=== PATIENT | female | born 1980 | race African-American/Black ===

== ENCOUNTER 2016-11-28 19:43 | Emergency (ER) | payer SELFPAY ==
[~2016-11-28] VITALS: Ht 167.6 cm; Wt 108.0 kg
[2016-11-28 19:44] VITALS: BP 160/103; PULSE 96; RESP 16; TEMP 98.2; O2SAT 100
--- NOTE | 2016-11-28 21:01 | PD ---
HPI Chief Complaint: Headache Time Seen by Provider: 20:58 Travel History International Travel<30 days: No Contact w/Intl Traveler<30days: No Traveled to known affect area: No History of Present Illness HPI 36-year-old black female presents to emergency department for evaluation of a headache. She states that her headache started earlier today. She just moved here 2 weeks ago from [place]. She last took 600 mg ibuprofen sometime around 6 PM for her headache. She has had minimal improvement. LOCATION: Frontal QUALITY: Pressure SEVERITY: Moderate TIMING: Current DURATION: Since earlier today CONTACTS: Not up couple MODIFYING FACTORS: Movement and activity ASSOCIATED TIME AND SYMPTOMS:Some weakness and dizziness. Denies any fever or chills. No runny nose, cough or congestion. No nausea vomiting. No photophobia or phonophobia. States history of prior headaches which she reports from sinus. [facility] Past Medical History Narrative Medical sINUS HEADACHES. Denies hypertension Diminished Hearing: No Tetanus Vaccination: Unknown Influenza Vaccination: No ?: Not LMP: 11/08/16 Past Surgical History Surgical History: No Previous Surgery Social History Alcohol Use: Yes (RARE) Tobacco Use: No Substance Use: No Allergies-Medications (Allergen,Severity, Reaction): Coded Allergies: Tylenol (Verified Adverse Reaction, Intermediate, Rash, 11/28/16) Reported Meds & Prescriptions Reported Meds & Active Scripts Active No Active Prescriptions or Reported Medications Review of Systems Except as stated in HPI: all other systems reviewed are Neg General / Constitutional: No: Fever, Chills Eyes: No: Diploplia, Blurred Vision, Photophobia HENT: Positive: Headaches, No: Neck Stiffness Cardiovascular: No: Chest Pain or Discomfort, Palpitations Respiratory: No: Cough, Shortness of Breath Gastrointestinal: No: Nausea, Vomiting Genitourinary: No: Dysuria, Hematuria Musculoskeletal: No: Myalgias, Arthralgias Skin: No Rash, No Itching Neurologic: Positive: Weakness, Dizziness, Headache, No: Paresthesia Physical Exam Narrative GENERAL: Well-developed, well-nourished in no apparent distress. Nontoxic appearing. HEAD: Normocephalic, atraumatic. Patient does complain of some mild discomfort on all patient of the forehead and cheeks. EYES: Pupils equal round and reactive. Extraocular motions intact. No scleral icterus. No injection or drainage. ENT: Nose clear. Throat without erythema, tonsillar hypertrophy or exudate. Uvula midline. Airway patent. NECK: Trachea midline. Supple, nontender, moves head freely. No central bony tenderness or spasm. CARDIOVASCULAR: Regular rate and rhythm without murmurs, gallops, or rubs. RESPIRATORY: Clear to auscultation. Breath sounds equal bilaterally. No wheezes , rales, or rhonchi. GASTROINTESTINAL: Abdomen soft, non-tender, nondistended. No hepato-splenomegaly , or palpable masses. No guarding. EXTREMITIES: No clubbing, cyanosis, or edema. No joint tenderness. BACK: Nontender without deformity. No flank tenderness. NEUROLOGICAL: Awake, alert and oriented x 3 .Cranial nerves grossly intact. Motor and sensory grossly within normal limits. Normal speech. Normal gait. Normal finger to nose. No acute sensorimotor deficit identified. Data Data Last Documented VS Vital Signs Date Time Temp Pulse Resp B/P Pulse Ox O2 Delivery O2 Flow Rate FiO2 11/28/16 21:06 89 17 136/92 96 Room Air 11/28/16 19:44 98.2 Orders Diphenhydramine Inj (Benadryl Inj) (11/28/16 21:15) Prochlorperazine Inj (Compazine Inj) (11/28/16 21:15) Iv Access Insert/Monitor (11/28/16 21:08) [facility] Medical Decision Making Medical Screen Exam Complete: Yes Emergency Medical Condition: Yes Medical Record Reviewed: Yes Differential Diagnosis MDM: High Differential diagnoses: Subarachnoid hemorrhage, intracranial bleed, aneurysm, pseudotumor, migraine, cluster headache, atypical migraine, temporal arteritis, connective tissue disorder, hypertension, temporal arteritis, sinusitis, sinus headache,malingering Narrative Course IV access is obtained. Patient given Benadryl 50 mg IV and Compazine 10 mg IV. The patient is reexamined. She states that she has had complete resolution of her headache. This is cephalgia Diagnosis Primary Impression: Cephalgia Patient Instructions: General Instructions Additional Instructions: Rest. Sleep. No driving. Follow-up with a medical doctor in the next 3-7 days. Return to the ER if any problems. Med/Other Pt SpecificInfo: No Meds Exist/No RX given Scripts No Active Prescriptions or Reported Meds Disposition: DISCHARGE HOME Condition: Stable Kayden Bey Nov 28, 2016 21:01
[2016-11-28 21:06] VITALS: BP 136/92; PULSE 89; RESP 17; O2SAT 96
[2016-11-28] MEDS ORDERED: PROCHLORPERAZINE INJ 10 MG/2 ML VIAL IVS ONE (21:15)
[2016-11-28] MEDS ORDERED: diphenhydrAMINE HCL 50 MG/ML VIAL IV PUSH ONE (21:15)
[2016-11-28 22:37] VITALS: BP 139/90
== END 2016-11-28 22:41 | disposition home or self-care (01) ==
LOC: NEPA 19:43
DX: R51 Headache (principal); R53.1 Weakness; R42 Dizziness and giddiness
CPT/HCPCS: 96374; 96375; 99283; J0780; J1200

== ENCOUNTER 2017-09-26 12:21 | Emergency (ER) | payer SELFPAY ==
[~2017-09-26] VITALS: Ht 167.6 cm; Wt 105.0 kg
[2017-09-26 12:26] VITALS: BP 171/101; PULSE 79; RESP 14; TEMP 98.2; O2SAT 99
[2017-09-26] MEDS ORDERED: SODIUM CHLOR 0.9% 1000 ML INJ 1,000 ML IV ONE (12:39)
[2017-09-26] MEDS ORDERED: ACETAMINOPHEN 325 MG TAB PO ONE (12:45)
[2017-09-26] MEDS ORDERED: SODIUM CHLORIDE 0.9% FLUSH 10 ML FLUSH IVF PRN (12:45)
[2017-09-26] MEDS ORDERED: PROCHLORPERAZINE INJ 10 MG/2 ML VIAL IVP ONE (12:45)
[2017-09-26] MEDS ORDERED: diphenhydrAMINE HCL 50 MG/ML VIAL IVP ONE (12:45)
[2017-09-26 12:46] VITALS: BP 142/87; PULSE 77; RESP 18; O2SAT 99
[2017-09-26] MEDS ORDERED: PROM25TA10 PO (13:42)
--- NOTE | 2017-09-26 13:42 | PD ---
HPI Chief Complaint: Headache Time Seen by Provider: 12:39 Travel History International Travel<30 days: No Contact w/Intl Traveler<30days: No Traveled to known affect area: No History of Present Illness HPI The patient's 36 years old. She complains of left sided cephalgia. 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 The onset was gradual. She's had no vomiting photophobia or neck stiffness. She's had no fever. She denies history of headaches. Severity is moderate and constant now. No other complaint is offered. There is no pain it's worse with bending over or with sneezing. No visual change. PFSH Past Medical History Heart Rhythm Problems: Yes (frequent pvc's) Diminished Hearing: No ?: Not LMP: July Social History Alcohol Use: Yes (RARE) Tobacco Use: No Substance Use: No Allergies-Medications (Allergen,Severity, Reaction): Coded Allergies: acetaminophen (Unverified Adverse Reaction, Intermediate, Rash, 09/26/17) Reported Meds & Prescriptions Reported Meds & Active Scripts Active Phenergan (Promethazine HCl) 25 Mg Tablet 25 Mg PO Q6H PRN Review of Systems Except as stated in HPI: all other systems reviewed are Neg General / Constitutional: No: Fever Physical Exam Narrative GENERAL: 36-year-old female pleasant well-nourished well-developed SKIN: Focused skin assessment warm/dry. HEAD: Atraumatic. Normocephalic. EYES: Pupils equal and round. No scleral icterus. No injection or drainage. ENT: No nasal bleeding or discharge. Mucous membranes pink and moist. NECK: Trachea midline. No JVD. Normal range of motion of the neck. CARDIOVASCULAR: Regular rate and rhythm. No murmur appreciated. RESPIRATORY: No accessory muscle use. Clear to auscultation. Breath sounds equal bilaterally. GASTROINTESTINAL: Abdomen soft, non-tender, nondistended. Hepatic and splenic margins not palpable. MUSCULOSKELETAL: No obvious deformities. No clubbing. No cyanosis. No edema. NEUROLOGICAL: Awake and alert. No obvious cranial nerve deficits. Motor grossly within normal limits. Normal speech. PSYCHIATRIC: Appropriate mood and affect; insight and judgment normal. Data Data Last Documented VS Vital Signs Date Time Temp Pulse Resp B/P (MAP) Pulse Ox O2 Delivery O2 Flow Rate FiO2 09/26/17 12:46 77 18 142/87 (105) 99 Room Air 09/26/17 12:26 98.2 vital signs reviewed Orders Orders Ecg Monitoring (09/26/17 12:39) Iv Access Insert/Monitor (09/26/17 12:39) Oximetry (09/26/17 12:39) Sodium Chloride 0.9% Flush (Ns Flush) (09/26/17 12:45) Acetaminophen (Tylenol) (09/26/17 12:45) Prochlorperazine Inj (Compazine Inj) (09/26/17 12:45) Diphenhydramine Inj (Benadryl Inj) (09/26/17 12:45) Sodium Chlor 0.9% 1000 Ml Inj (Ns 1000 M (09/26/17 12:39) Ed Discharge Order (09/26/17 14:01) MDM Medical Decision Making Medical Screen Exam Complete: Yes Emergency Medical Condition: Yes Medical Record Reviewed: Yes Differential Diagnosis Migraine, tension headache, intracranial hemorrhage, aneurysm, cerebral venous thrombosis, tension headache Narrative Course Patient received abortive therapy with excellent effect. Phenergan prescription. Follow-up with primary. Diagnosis Primary Impression: Cephalgia Qualified Codes: R51 - Headache Med/Other Pt SpecificInfo: Prescription(s) given Scripts Promethazine (Phenergan) 25 Mg Tablet 25 MG PO Q6H Y for NAUSEA OR VOMITING, #15 TAB 0 Refills Prov: Tay Carranza MD 09/26/17 Disposition: 01 DISCHARGE HOME Condition: Stable Tay Carranza MD Sep 26, 2017 13:42
[2017-09-26 14:24] VITALS: BP 137/84
== END 2017-09-26 14:26 | disposition home or self-care (01) ==
LOC: NEPC 12:21
DX: R51 Headache (principal); Z79.899 Other long term (current) drug therapy; Z88.6 Allergy status to analgesic agent
CPT/HCPCS: 96361; 96374; 96375; 99284; J0780; J1200; J7030

== ENCOUNTER 2017-11-02 18:02 | Emergency (ER) | payer OTHER ==
[~2017-11-02 18:02] MED LIST: PROM25TA10 PO
[2017-11-02 18:03] VITALS: BP 158/96; PULSE 86; RESP 16; TEMP 97.8; O2SAT 100
[2017-11-02] MEDS ORDERED: SODIUM CHLORIDE 0.9% FLUSH 10 ML FLUSH IVF PRN (18:15)
--- NOTE | 2017-11-02 18:43 | RADRPT ---
EXAM DATE/TIME: 11/02/2017 18:20 [facility] COMPARISON: No previous studies available for comparison. INDICATIONS : Chest pain and dizziness. MEDICAL HISTORY : None. SURGICAL HISTORY : None. ENCOUNTER: Initial ACUITY: 1 day PAIN SCORE: 10/10 LOCATION: Bilateral chest FINDINGS: PA and lateral views of the chest demonstrate the lungs to be symmetrically aerated without evidence of mass, infiltrate or effusion. The cardiomediastinal contours are unremarkable. Osseous structure s are intact. CONCLUSION: No acute disease. Nguyễn Zelaya MD on November 02, 2017 at 18:41 Board Certified Radiologist. This report was verified electronically.
[2017-11-02 18:51] LABS: AUTOMATED NEUTROPHIL # 10.3 TH/MM3 (1.8-7.7); BASOPHIL # 0.1 TH/MM3 (0-0.2); BASOPHIL % 0.7 % (0.0-2.0); EOSINOPHIL # 0.2 TH/MM3 (0-0.4); EOSINOPHIL % 1.1 % (0.0-4.0); HEMATOCRIT 34.4 % (35.0-46.0); HEMOGLOBIN 11.5 GM/DL (11.6-15.3); LYMPH % 22.6 % (9.0-44.0); LYMPHOCYTE # 3.4 TH/MM3 (1.0-4.8); MEAN CELL VOLUME 85.9 FL (80.0-100.0); MEAN CORPUSCULAR HEMOGLOBIN 28.7 PG (27.0-34.0); MEAN CORPUSCULAR HGB CONC 33.4 % (32.0-36.0); MEAN PLATELET VOLUME 8.2 FL (7.0-11.0); MONO % 6.8 % (0.0-8.0); NEUT % 68.8 % (16.0-70.0); PLATELET COUNT 322 TH/MM3 (150-450); RED CELL DISTRIBUTION WIDTH 13.9 % (11.6-17.2)
[2017-11-02 18:58] LABS: PROTHROMBIN TIME - PATIENT 10.5 SEC (9.8-11.6)
[2017-11-02 19:07] LABS: ALBUMIN 3.7 GM/DL (3.4-5.0); AST (GOT) 15 U/L (15-37); BICARBONATE 27.8 MEQ/L (21.0-32.0); BLOOD UREA NITROGEN 14 MG/DL (7-18); CALCIUM 8.9 MG/DL (8.5-10.1); CHLORIDE 104 MEQ/L (98-107); CREATININE 0.76 MG/DL (0.50-1.00); GLOMERULAR FILTRATION RATE 105 ML/MIN (>89); GLUCOSE,RANDOM 98 MG/DL (74-106); SODIUM (NA) 138 MEQ/L (136-145)
[2017-11-02 19:08] LABS: ALT (GPT) 22 U/L (10-53)
[2017-11-02 19:12] LABS: ALKALINE PHOSPHATASE 100 U/L (45-117); TOTAL BILIRUBIN ADULT 0.5 MG/DL (0.2-1.0); TROPONIN I LESS THAN 0.02 NG/ML (0.02-0.05)
[2017-11-02] MEDS ORDERED: cloNIDine HCL 0.1 MG TAB PO ONE (19:30)
[2017-11-02] MEDS ORDERED: CARV3.12 PO (19:31)
[2017-11-02 19:41] VITALS: BP 117/80; PULSE 80; RESP 16; O2SAT 96
[2017-11-02] MEDS ORDERED: KETOROLAC TROMETHAMINE 30 MG/ML (IVP) VIAL IV PUSH ONE (22:00)
[2017-11-03 00:26] LABS: BILIRUBIN, URINE NEG (NEG); BLOOD, URINE SMALL (NEG); GLUCOSE,URINE NEG (NEG); KETONE, URINE NEG (NEG); MUCUS URINE FEW /lpf (OCC); NITRITE,URINE NEG (NEG); PH, URINE 5.5 (5.0-8.5); SQUAMOUS EPITHELIAL CELL URINE <1 /hpf (0-5); URINE COLOR LIGHT-YELLOW (YELLW/STRAW); URINE LEUKOCYTE ESTERASE NEG (NEG)
[2017-11-03 00:51] VITALS: BP 137/89
[2017-11-03] MEDS ORDERED: LISI-519 PO (01:01)
--- NOTE | 2017-11-03 01:01 | PD ---
HPI . Hypertension/chest pain/headache Chief Complaint: Chest Pain Time Seen by Provider: 19:23 Travel History International Travel<30 days: No Contact w/Intl Traveler<30days: No Traveled to known affect area: No History of Present Illness HPI 36-year-old female presents with complaints of high blood pressure, with associated headache, and chest pressure which patient states that occurs intermittently associated when her blood pressure is elevated. Patient was lost to follow-up, as recently procured insurance, and wishes to have referral for outpatient medical clinic/physician. Patient denies any change in exercise tolerance, denies any leg pain or swelling or confining travel or sedentary period. Denies double vision, focal weakness or tingling, or incontinence. PFSH Past Medical History Narrative Medical Past medical history reviewed Heart Rhythm Problems: Yes (frequent pvc's) Diminished Hearing: No ?: Not LMP: 11/02/17 Social History Alcohol Use: Yes (RARE) Tobacco Use: No Substance Use: No Allergies-Medications (Allergen,Severity, Reaction): Coded Allergies: acetaminophen (Verified Adverse Reaction, Intermediate, Rash, 11/02/17) Reported Meds & Prescriptions Reported Meds & Active Scripts Active Phenergan (Promethazine HCl) 25 Mg Tablet 25 Mg PO Q6H PRN Reported Carvedilol 3.125 Mg Tab Unknown Dose PO BID Narrative Medication Allergies and medications reviewed Review of Systems General / Constitutional: No: Fever Eyes: No: Visual changes HENT: Positive: Headaches Cardiovascular: Positive: Chest Pain or Discomfort Respiratory: No: Shortness of Breath Gastrointestinal: No: Abdominal Pain Genitourinary: No: Dysuria Musculoskeletal: No: Pain Skin: No Rash Neurologic: No: Weakness Psychiatric: No: Depression Endocrine: No: Polydipsia Hematologic/Lymphatic: No: Easy Bruising Physical Exam Narrative GENERAL: Awake and alert oriented 3 no acute distress. Patient appears uncomfortable. Patient was hypertensive in triage SKIN: Warm and dry. Color normal no diaphoresis cyanosis or pallor HEAD: Atraumatic. Normocephalic. EYES: Pupils equal and round. No scleral icterus. No injection or drainage. Funduscopic exam difficult secondary to poor patient purchase patient ENT: No nasal bleeding or discharge. Mucous membranes pink and moist. NECK: Trachea midline. No JVD. Supple for range of motion CARDIOVASCULAR: Regular rate and rhythm. S1-S2 no murmurs rubs or gallops RESPIRATORY: No accessory muscle use. Clear to auscultation. Breath sounds equal bilaterally. GASTROINTESTINAL: Abdomen soft, non-tender, nondistended. Hepatic and splenic margins not palpable. MUSCULOSKELETAL: Extremities without clubbing, cyanosis, or edema. No obvious deformities. NEUROLOGICAL: Awake and alert. No obvious cranial nerve deficits. Motor grossly within normal limits. Five out of 5 muscle strength in the arms and legs. Normal speech. PSYCHIATRIC: Appropriate mood and affect; insight and judgment normal. Data Data Last Documented VS Vital Signs Date Time Temp Pulse Resp B/P (MAP) Pulse Ox O2 Delivery O2 Flow Rate FiO2 11/02/17 19:55 16 Room Air 11/02/17 19:41 80 117/80 (92) 96 11/02/17 18:03 97.8 Orders Orders Electrocardiogram (11/02/17 18:11) Ckmb (Isoenzyme) Profile (11/02/17 18:11) Complete Blood Count With Diff (11/02/17 18:11) Comprehensive Metabolic Panel (11/02/17 18:11) Magnesium (Mg) (11/02/17 18:11) Prothrombin Time / Inr (Pt) (11/02/17 18:11) Act Partial Throm Time (Ptt) (11/02/17 18:11) Troponin I (11/02/17 18:11) Sodium Chloride 0.9% Flush (Ns Flush) (11/02/17 18:15) Chest, Pa & Lat (11/02/17 18:11) CKMB (11/02/17 18:16) CKMB% (11/02/17 18:16) Influenzae A/B Antigen (11/02/17 19:26) Clonidine (Catapres) (11/02/17 19:30) Urinalysis - C+S If Indicated (11/02/17 21:51) Ed Urine Pregnancytest Poc (11/02/17 21:51) Ketorolac Inj (Toradol Inj) (11/02/17 22:00) Electrocardiogram (11/02/17 ) D-Dimer (11/02/17 22:06) Labs Laboratory Tests Test 11/02/17 18:16 11/02/17 22:59 11/02/17 23:30 White Blood Count 15.0 TH/MM3 Red Blood Count 4.00 MIL/MM3 Hemoglobin 11.5 GM/DL Hematocrit 34.4 % Mean Corpuscular Volume 85.9 FL Mean Corpuscular Hemoglobin 28.7 PG Mean Corpuscular Hemoglobin Concent 33.4 % Red Cell Distribution Width 13.9 % Platelet Count 322 TH/MM3 Mean Platelet Volume 8.2 FL Neutrophils (%) (Auto) 68.8 % Lymphocytes (%) (Auto) 22.6 % Monocytes (%) (Auto) 6.8 % Eosinophils (%) (Auto) 1.1 % Basophils (%) (Auto) 0.7 % Neutrophils # (Auto) 10.3 TH/MM3 Lymphocytes # (Auto) 3.4 TH/MM3 Monocytes # (Auto) 1.0 TH/MM3 Eosinophils # (Auto) 0.2 TH/MM3 Basophils # (Auto) 0.1 TH/MM3 CBC Comment DIFF FINAL Differential Comment Prothrombin Time 10.5 SEC Prothromb Time International Ratio 1.0 RATIO Activated Partial Thromboplast Time 26.9 SEC Blood Urea Nitrogen 14 MG/DL Creatinine 0.76 MG/DL Random Glucose 98 MG/DL Total Protein 8.0 GM/DL Albumin 3.7 GM/DL Calcium Level 8.9 MG/DL Magnesium Level 2.0 MG/DL Alkaline Phosphatase 100 U/L Aspartate Amino Transf (AST/SGOT) 15 U/L Alanine Aminotransferase (ALT/SGPT) 22 U/L Total Bilirubin 0.5 MG/DL Sodium Level 138 MEQ/L Potassium Level 3.9 MEQ/L Chloride Level 104 MEQ/L Carbon Dioxide Level 27.8 MEQ/L Anion Gap 6 MEQ/L Estimat Glomerular Filtration Rate 105 ML/MIN Total Creatine Kinase 244 U/L Creatine Kinase MB 1.9 NG/ML Creatine Kinase MB % 0.8 % Troponin I LESS THAN 0.02 NG/ML D-Dimer Quantitative (PE/DVT) 0.28 MG/L FEU Urine Color LIGHT-YELLOW Urine Turbidity CLEAR Urine pH 5.5 Urine Specific [place] 1.008 Urine Protein NEG mg/dL Urine Glucose (UA) NEG mg/dL Urine Ketones NEG mg/dL Urine Occult Blood SMALL Urine Nitrite NEG Urine Bilirubin NEG Urine Urobilinogen LESS THAN 2.0 MG/DL Urine Leukocyte Esterase NEG Urine RBC 1 /hpf Urine WBC 1 /hpf Urine Squamous Epithelial Cells <1 /hpf Urine Mucus FEW /lpf Microscopic Urinalysis Comment CULT NOT INDICATED MDM Medical Decision Making Medical Screen Exam Complete: Yes Emergency Medical Condition: Yes Medical Record Reviewed: Yes Differential Diagnosis Hypertensive urgency, chest pain, headache Narrative Course No sinus rhythm 80 bpm, ST elevation of 1 mm in V1 and nonspecific remainder of cardiogram normal. Repeat cardiogram at 2 hours, no change Laboratory examinations including cardiac enzymes and renal function normal Patient's blood pressure normalized on its own, and patient's symptomatology abated with normalization of blood pressure Care plan developed with patient, low dose antihypertensive daily, follow-up as outpatient with medical clinic for repeat blood pressure checks. Return for worsening Diagnosis Primary Impression: Hypertensive urgency Patient Instructions: General Instructions, Hypertension (ED) Additional Instructions: Follow-up with outpatient medical clinic. Lisinopril 5 mg daily. Return for worsening Scripts Lisinopril (Lisinopril) 5 Mg Tab 5 MG PO DAILY for Blood Pressure Management, #30 TAB 0 Refills Prov: Randy Denise MD 11/03/17 Disposition: 01 DISCHARGE HOME Condition: Stable Randy Denise MD Nov 03, 2017 01:01
[2017-11-03] MEDS ORDERED: LISINOPRIL 5 MG TAB PO ONE (01:15)
--- NOTE | 2017-11-03 09:46 | EKG ---
Date Performed: 11/02/2017 Time Performed: 22:16:36 PTAGE: 36 years EKG: Sinus rhythm NONSPECIFIC T-WAVE ABNORMALITY BORDERLINE ECG PREVIOUS TRACING : 11/02/2017 22.15 DOCTOR: Dwight Delacruz Interpretating Date/Time 11/03/2017 09:45:05
--- NOTE | 2017-11-03 09:51 | EKG ---
Date Performed: 11/02/2017 Time Performed: 18:26:54 PTAGE: 36 years EKG: Sinus rhythm NONSPECIFIC T-WAVE ABNORMALITY BORDERLINE ECG NO PREVIOUS TRACING DOCTOR: Dwight Delacruz Interpretating Date/Time 11/03/2017 09:50:28
== END 2017-11-03 01:13 | disposition home or self-care (01) ==
LOC: NEPC 18:02
DX: I16.0 Hypertensive urgency (principal); I10 Essential (primary) hypertension; Z79.899 Other long term (current) drug therapy
CPT/HCPCS: 71046; 80053; 81001; 82550; 82552; 83735; 84484; 84703; 85025; 85379; 85610; 85730; 87804; 93005; 96374; 99285; J1885

== ENCOUNTER 2017-12-24 14:29 | Emergency (ER) | payer OTHER ==
[~2017-12-24] VITALS: Ht 167.6 cm; Wt 100.0 kg
[~2017-12-24 14:29] MED LIST changes: +CARV3.12 PO; +LISI-519 PO
[2017-12-24 14:42] VITALS: BP 139/66; PULSE 92; RESP 18; TEMP 98; O2SAT 100
--- NOTE | 2017-12-24 15:10 | RADRPT ---
EXAM DATE/TIME: 12/24/2017 14:56 [facility] COMPARISON: CHEST PA & LAT, November 02, 2017, 18:20. INDICATIONS : Cough,fever MEDICAL HISTORY : None. SURGICAL HISTORY : None. ENCOUNTER: Initial ACUITY: 3 days PAIN SCORE: 0/10 LOCATION: chest FINDINGS: PA and lateral views of the chest demonstrate the lungs to be symmetrically aerated without evidence of mass, infiltrate or effusion. The cardiomediastinal contours are unremarkable. Osseous structure s are intact. CONCLUSION: No acute disease. Charles Bobby MD FACR on December 24, 2017 at 15:09 Board Certified Radiologist. This report was verified electronically.
--- NOTE | 2017-12-24 17:05 | PD ---
HPI Chief Complaint: Cold / Flu Symptoms Time Seen by Provider: 16:55 Travel History International Travel<30 days: No Contact w/Intl Traveler<30days: No Traveled to known affect area: No History of Present Illness HPI 37-year-old female presents emergency department with complaints of cough, congestion, fever, and a "hoarse voice" that started Wednesday. Patient states that she had diarrhea on Wednesday. Says this morning she woke up and she had bloody mucus when she coughs. She denies shortness of breath, cough, nausea, vomiting. Says she has been using [id number] medications for cough and sinus along with ibuprofen and Benadryl without significant relief. She has a history of high blood pressure but otherwise denies chronic medical issues or medication use. PFSH Past Medical History Heart Rhythm Problems: Yes (frequent pvc's) Diminished Hearing: No ?: Not LMP: NOV 2017 Social History Alcohol Use: Yes (RARE) Tobacco Use: No Substance Use: No Allergies-Medications (Allergen,Severity, Reaction): Coded Allergies: acetaminophen (Verified Adverse Reaction, Intermediate, Rash, 11/02/17) Reported Meds & Prescriptions Reported Meds & Active Scripts Active Prednisone 5 Mg Tab 5 Mg PO DAILY 5 Days Tamiflu (Oseltamivir Phosphate) 75 Mg Cap 75 Mg PO BID 5 Days Lisinopril 5 Mg Tab 5 Mg PO DAILY Phenergan (Promethazine HCl) 25 Mg Tablet 25 Mg PO Q6H PRN Reported Carvedilol 3.125 Mg Tab Unknown Dose PO BID Review of Systems Except as stated in HPI: all other systems reviewed are Neg Physical Exam Narrative GENERAL: Well-nourished, well-developed patient. SKIN: Focused skin assessment warm/dry. HEAD: Normocephalic. EYES: No scleral icterus. No injection or drainage. NECK: Supple, trachea midline. No JVD or lymphadenopathy. CARDIOVASCULAR: Regular rate and rhythm without murmurs, gallops, or rubs. RESPIRATORY: Breath sounds equal bilaterally. No accessory muscle use. GASTROINTESTINAL: Abdomen soft, non-tender, nondistended. No CVA tenderness MUSCULOSKELETAL: No cyanosis, or edema. BACK: Nontender without obvious deformity. No CVA tenderness. Data Data Last Documented VS Vital Signs Date Time Temp Pulse Resp B/P (MAP) Pulse Ox O2 Delivery O2 Flow Rate FiO2 12/24/17 14:42 98.0 92 18 139/66 (90) 100 Orders Orders Chest, Pa & Lat (12/24/17 ) Influenzae A/B Antigen (12/24/17 14:47) Oseltamivir (Tamiflu) (12/24/17 17:15) Prednisone (Deltasone) (12/24/17 17:15) Ed Discharge Order (12/24/17 17:11) MDM Medical Decision Making Medical Screen Exam Complete: Yes Emergency Medical Condition: Yes Differential Diagnosis viral syndrome, influenza, allergic rhinitis Narrative Course 72-year-old female presents emergency department at the request of his primary care physician, Dr. Delaney with a low hemoglobin. Says that the hemoglobin was 7.0 and the blood was taken last Wednesday. Patient states that she "feels great" was surprised at this finding. Patient says that she had a colonoscopy in endoscopy last Wednesday which did not demonstrate a source of the potential bleeding. Patient states she has a follow-up with his collection supervisor Wednesday regarding these findings and to determine what tests they were performed. Says she is due to follow-up with her primary care physician on Wednesday. Patient says she was here in November for 4-6 units of blood and at that time she had chest pain, heart palpitations, shortness of breath and was overall feeling fatigued. Patient denies any the symptoms today. Vital signs stable. Last Impressions Chest X-Ray 12/24/17 0000 Signed Impressions: Service Date/Time: Sunday, December 24, 2017 14:56 - CONCLUSION: No acute disease. Charles Bobby MD FACR Physical exam findings unremarkable except for erythematous posterior pharynx with cobblestoning. 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 Patient is exposed to multiple sick contacts daily. At this point, I am concerned that she does have some sort of influenza although her test is negative today. Also her symptoms started Wednesday but she developed diarrhea on Wednesday. I believe that Tamiflu would help her at this point. Patient will be discharged with Tamiflu. First dose today along with prednisone. Patient will be discharged with a short and small course of prednisone for her congestion. Advised she should follow up with her PCP within 2-3 days. Return to the ED for worsening or persistent symptoms. Diagnosis Primary Impression: Viral syndrome Additional Impression: Congestion of nasal sinus Referrals: Primary Care Physician Departure Forms: Tests/Procedures, Work Release Enter return to work date: Dec 27, 2017 Additional Instructions: Take all medications as prescribed. Ensure adequate fluid intake and proper nutrition. Follow-up with primary care physician within 2-3 days. If her symptoms persist or worsen return to the emergency department. Scripts Prednisone (Prednisone) 5 Mg Tab 5 MG PO DAILY for 5 Days, #5 TAB 0 Refills Prov: Nataly Pickering 12/24/17 Oseltamivir (Tamiflu) 75 Mg Cap 75 MG PO BID for Mgmt Viral Infection for 5 Days, #10 CAP 0 Refills Prov: Nataly Pickering 12/24/17 Disposition: 01 DISCHARGE HOME Condition: Stable Nataly Pcikering Dec 24, 2017 17:05
[2017-12-24] MEDS ORDERED: PRED5TAB PO (17:10)
[2017-12-24] MEDS ORDERED: OSEL75 PO (17:10)
[2017-12-24] MEDS ORDERED: OSELTAMIVIR PHOSPHATE 75 MG CAP PO ONE (17:15)
[2017-12-24] MEDS ORDERED: predniSONE 10 MG TAB PO ONE (17:15)
== END 2017-12-24 17:30 | disposition home or self-care (01) ==
LOC: NEPA 14:29
DX: B34.9 Viral infection, unspecified (principal); R09.81 Nasal congestion
CPT/HCPCS: 71046; 87804; 99284; J7512

== ENCOUNTER 2018-04-12 10:50 | Emergency (ER) | payer OTHER ==
[~2018-04-12] VITALS: Ht 167.6 cm; Wt 100.0 kg
[~2018-04-12 10:50] MED LIST changes: +OSEL75 PO; +PRED5TAB PO
[2018-04-12 10:59] VITALS: BP 151/73; PULSE 80; RESP 16; TEMP 98.4; O2SAT 100
[2018-04-12] MEDS ORDERED: PERM5CRE11 TOPICAL (12:04)
--- NOTE | 2018-04-12 12:04 | PD ---
HPI Chief Complaint: Skin Problem Time Seen by Provider: 11:26 Travel History International Travel<30 days: No Contact w/Intl Traveler<30days: No Traveled to known affect area: No History of Present Illness HPI 37-year-old female presents to emergency department with complaint of a generalized itchy rash 1 week. Denies fever, vomiting. Denies airway edema, shortness of breath, difficulty breathing. Denies new exposures to lotions, soaps, detergents, perfumes, foods, medications, environmental exposures. No others with similar symptoms. Has tried calamine lotion, hydrocortisone cream, Benadryl with no relief of symptoms. No known relieving or aggravating factors. No primary care provider. Allergies to Tylenol and shellfish. History of PVCs and takes carvedilol. Has no other medical complaints. No other modifying factors or associated signs and symptoms. PFSH Past Medical History Heart Rhythm Problems: Yes (frequent pvc's) Cardiovascular Problems: Yes Diminished Hearing: No Tetanus Vaccination: Unknown Influenza Vaccination: No ?: Not Past Surgical History Surgical History: No Previous Surgery Social History Alcohol Use: Yes (RARE) Tobacco Use: No Substance Use: No Allergies-Medications (Allergen,Severity, Reaction): Coded Allergies: shellfish derived (Verified Allergy, Intermediate, Rash, 04/12/18) acetaminophen (Verified Adverse Reaction, Intermediate, Rash, 04/12/18) Reported Meds & Prescriptions Reported Meds & Active Scripts Active Elimite Topical (Permethrin) 5% Cream 1 Applic TOPICAL ONCE Reported Carvedilol 3.125 Mg Tab Unknown Dose PO BID Review of Systems Except as stated in HPI: all other systems reviewed are Neg Physical Exam Narrative GENERAL: Well-nourished, well-developed black female patient, in no acute distress; afebrile, nontoxic-appearing SKIN: Warm and dry. Generalized erythremic pimple-like rash to abdomen, back, bilateral upper extremity, bilateral lower extremities. No areas with cellulitic process noted. HEAD: Atraumatic. Normocephalic. EYES: Pupils equal and round. No scleral icterus. No injection or drainage. ENT: Mucosa pink and moist. Airway patent. NECK: Trachea midline. CARDIOVASCULAR: Regular rate. RESPIRATORY: No accessory muscle use. GASTROINTESTINAL: Obese. MUSCULOSKELETAL: No obvious deformities. No clubbing. No cyanosis. No edema. NEUROLOGICAL: Awake and alert. Oriented 3. No obvious cranial nerve deficits. Motor grossly within normal limits. Normal speech. PSYCHIATRIC: Appropriate mood and affect; insight and judgment normal. Data Data Last Documented VS Vital Signs Date Time Temp Pulse Resp B/P (MAP) Pulse Ox O2 Delivery O2 Flow Rate FiO2 04/12/18 10:59 98.4 80 16 151/73 (99) 100 Orders Orders Ed Discharge Order (04/12/18 12:04) MDM Medical Decision Making Medical Screen Exam Complete: Yes Emergency Medical Condition: Yes Medical Record Reviewed: Yes Differential Diagnosis Scabies, nonspecific rash or skin eruption, contact dermatitis Narrative Course 37-year-old female with generalized itching rash consistent with scabies rash. Patient is afebrile and nontoxic-appearing. Denies fever, vomiting. Elimite cream prescribed for home. Instructed patient to follow up with primary care provider. Patient verbalizes understanding and agreement with treatment plan. Patient is medically cleared and stable for discharge. Discussed reasons to return to the emergency department. Patient agrees with treatment plan. The patients vital signs are stable and the patient is stable for outpatient follow- up and treatment. Patient discharged home, stable and in no acute distress. Diagnosis Primary Impression: Scabies Referrals: [facility] [employer] Primary Care Physician Patient Instructions: Acute Rash (ED), General Instructions, Scabies (ED) Additional Instructions: Elimite cream as directed; repeat in one week as needed Soaking in cool water or apply cool, wet washcloths to irritated areas to minimize itching Apply anti-itch creams, such as calamine lotion, to relieve pain and itching as needed [id number] antihistamines as needed and as directed to relieve allergic symptoms caused by scabies Wash all pillows, linens, blankets, etc. in hot water and dry in hot dryer Bag and all unwashable linens, [place] stuffed animals, etc. in a tightly sealed garbage bag for up to 2 weeks Follow-up with vessel liner Follow-up with primary care provider Return to the emergency department immediately with worsening of symptoms Med/Other Pt SpecificInfo: Prescription(s) given Scripts Permethrin Topical (Elimite Topical) 5% Cream 1 APPLIC TOPICAL ONCE for Scabies, #1 TUBE 0 Refills Prov: Telma Cruz 04/12/18 Disposition: 01 DISCHARGE HOME Condition: Stable Telma Cruz Apr 12, 2018 12:04
== END 2018-04-12 12:32 | disposition home or self-care (01) ==
LOC: NEPK 10:50
DX: B86 Scabies (principal); I49.3 Ventricular premature depolarization
CPT/HCPCS: 99283